=== PATIENT | male | born 1950 | race Caucasian/White ===

== ENCOUNTER 2016-04-10 08:38 | Emergency (ER) | payer MEDICARE, MEDICAID ==
[2015-07-19 12:46] VITALS: BMI 27.7
[~2016-04-10 08:38] MED LIST: ABILIFY10 MG PO; ACETAMINOPHEN500 M1 PO; ARTIFICIAL TEAR15 ML EACH EYE; ASPIRIN325 MG PO; ATARAX 25 MG TA25 MG PO; ATIVAN1 MG PO; ATROPINE SL; CARBIDOPA-LEVO1 EAC2 PO; CARBIDOPA-LEVO1 EAC4 PO; CATAPRES TTS-10.1 MG TD; CELEXA20 MG PO; CLARITIN 10 MG10 MG PO; CLEOCIN HCL300 MG PO; COLACE100 MG PO; COMTAN200 MG PO; CYMBALTA30 MG; DICLOFENAC SODI50 MG PO; FEXOFENADINE HC60 MG PO; FLOMAX0.4 MG; FLOMAX0.4 MG PO; FLUTICASONE PRO16 GM NASAL; GAS-X125 M1 PO; HYDROCODON-ACE1 EAC7 PO; LOPRESSOR25 MG PO; MELATONIN 3 MG1 TAB PO; MIRALAX17 GM PO; MYRBETRIQ50 MG PO; NEUPRO; NITROSTAT0.4 MG SL; NORCO 7.5/325 T1 TA1 PO; PREVACID30 MG PO; PROTONIX40 MG PO; REMERON15 MG PO; REQUIP XL2 MG; REQUIP XL2 MG PO; RESTORIL7.5 MG PO; SELEGILINE HCL5 M1; SELEGILINE HCL5 M1 PO; SINEMET 25-1001 EACH PO; TRANSDERM-SCOP1.5 MG TD; TUMS500 MG PO; VESICARE5 MG PO; VITAMIN B COMPL1 TAB PO; VITAMIN D250000 UNIT PO; VITAMIN D31000 UNIT PO; VITAMIN D5000 UNIT PO; WELLBUTRIN SR150 MG PO; XANAX0.5 MG PO
[2016-04-10 09:08] LABS: BASOPHILS 0.3 % (0.0-2.0); HEMATOCRIT 35.5 % (42.0-54.0); HEMOGLOBIN 11.5 g/dL (13.5-17.5); IMMATURE GRANULOCYTES 0.1 % (0-5); LYMPHOCYTES 16.2 % (15-50); MCH 32.1 pg (26.0-34.0); MCHC 32.4 g/dL (31.0-37.0); MCV 99.2 fL (80.0-100.0); MEAN PLATELET VOLUME 9.6 fL (7.4-10.4); MONOCYTES 4.9 % (2-11); NEUTROPHILS 76.5 % (40-80); RBC 3.58 10x6/uL (4.20-6.10); RDW 12.4 % (11.5-14.5); WBC 7.6 10x3/uL (4.8-10.8)
[2016-04-10 09:09] LABS: PLATELET COUNT 152 10x3/uL (130-400)
[2016-04-10 09:27] LABS: ALBUMIN 3.5 g/dL (3.4-5.0); ALKALINE PHOSPHATASE 49 U/L (46-116); ALT (SGPT) 8 U/L (10-68); BILIRUBIN - TOTAL 1.18 mg/dL (0.2-1.3); CALC OSMOLALITY 283 mosm/kg (275-300); CALCIUM 8.2 mg/dL (8.5-10.1); CARBON DIOXIDE 32.7 mmol/L (21.0-32.0); CHLORIDE - SERUM 104 mmol/L (98-107); CREATININE - SERUM 0.8 mg/dL (0.6-1.3); GLUCOSE 115 mg/dL (74-106); POTASSIUM - SERUM 3.7 mmol/L (3.5-5.1); PROTEIN - SERUM 6.6 g/dL (6.4-8.2); SODIUM 141 mmol/L (136-145); UREA NITROGEN 17 mg/dL (7-18); eGFR NON AFRICAN AMERICAN > 90 mL/min (90-120)
[2016-04-10 09:36] LABS: AMYLASE - SERUM 50 U/L (25-115); CREATINE KINASE 69 UL (21-232); LIPASE 158 U/L (73-393); PRO BNP 104 pg/mL (0-125)
[2016-04-10 09:37] LABS: TROPONIN-I < 0.017 ng/mL (0.000-0.060)
== END 2016-04-10 10:10 | disposition home or self-care (01) ==
LOC: D.ER 08:38
PROVIDERS: Family Medicine
DX: R55 Syncope and collapse (principal); F41.9 Anxiety disorder, unspecified; N41.1 Chronic prostatitis; I10 Essential (primary) hypertension; E78.00 Pure hypercholesterolemia, unspecified; G47.00 Insomnia, unspecified; G20 Parkinson's disease; R00.1 Bradycardia, unspecified; I44.0 Atrioventricular block, first degree

== ENCOUNTER 2017-08-03 04:31 | Inpatient (IN) | payer MEDICARE, MEDICAID ==
[~2017-08-03] VITALS: Ht 167.6 cm; Wt 49.8 kg
[2017-08-03] VITALS (12 sets, daily range): BP systolic 119–152; BP diastolic 75–89; Ht 167.6 cm; Wt 49.8 kg
--- NOTE | ~2017-08-03 | CN ---
PATIENT NAME:JAYDEN DIXON JR MEDICAL RECORD: [id number] : 48 LOCATION:[facility] [place] ADMIT DATE: 08/03/17 ACCOUNT: [id number] CONSULTING PHYSICIAN: JONO CHUN MD REFERRING PHYSICIAN: VANDANA JOSE MD DATE OF CONSULTATION: 08/08/2017 CONSULT REQUESTING PHYSICIAN: Seble Andrew MD REASON FOR CONSULTATION: Pneumonia, right lower lobe and leukocytosis. HISTORY OF PRESENT ILLNESS: Mr. Dixon is a 66-year-old gentleman who has advanced Parkinson disease. The patient was admitted with nausea, vomiting, and coffee-ground vomit. He is now feeling a lot better. He has significant leukocytosis on admission and that has been improving. REVIEW OF SYSTEMS: Mainly in the history of present illness. PAST MEDICAL HISTORY: 1. Advanced Parkinson disease. 2. Functional quadriplegia. 3. Hypertension. 4. Hyperlipidemia. 5. Allergies. 6. Anxiety, depression. 7. Gastroesophageal reflux disease. 8. Dysphagia. PAST SURGICAL HISTORY: 1. Tonsillectomy. 2. Status post TURP. 3. Status post PEG tube placement. ALLERGIES: ALLERGIC TO HYDROXYZINE, ABILIFY, AND KLONOPIN. PRESENT MEDICATIONS: [employer] is reviewed. PERSONAL AND SOCIAL HISTORY: The patient never smokes, he is nondrinker. FAMILY HISTORY: Significant neurovascular, cardiovascular disease. PHYSICAL EXAMINATION: GENERAL: Now, the patient is lying comfortably in bed. He is not in acute distress. VITAL SIGNS: The blood pressure 122/68, pulse is 70, respiration 15, temperature 98.8, and SpO2 is 97% on 1.5 liters nasal cannula. HEENT: Conjunctivae are pink. Sclerae are not icteric. NECK: Supple, no JVD. CHEST: Excursion is minimal on both sides. There are basal crackles. No wheezing. HEART: Rhythm regular, normal sound, no murmur. ABDOMEN: Soft, bowel sounds present. The PEG tube is in place. RECTAL: Deferred. EXTREMITIES: No cyanosis, no clubbing, no pedal edema. CENTRAL NERVOUS SYSTEM: The patient is awake and alert. There is increased CONSULT REPORT [id number] JAYDEN DIXON JR rigidity. LABORATORY DATA: CBC on admission: WBC 19.3, hemoglobin 12.3, hematocrit 36.9, and the platelet count 230. Chemistry: Sodium 139, potassium 4.4, BUN is 9, creatinine 0.9. ABG on admission, the pH was 7.34, pCO2 of 49.1, the pO2 was 43, the bicarbonate is 26.8. Acute chest radiograph showed a right basal infiltrate. IMPRESSION: 1. Acute hypoxic respiratory failure secondary to pneumonia. 2. Pneumonia, right lower lobe, most likely aspiration with associated nausea and vomiting. 3. Leukocytosis. This has been improved. 4. Nausea and vomiting, etiology not clear. 5. Advanced Parkinson disease. 6. Dysphagia, status post PEG tube placement. RECOMMENDATION: 1. We will continue the Zosyn IV. 2. Supplemental oxygen. 3. We will follow labs and chest radiograph. GI has been consulted. Dr. Andrew, thank you for involving me in the care of Mr. Dixon. TRANSINT:[id number] Voice Confirmation ID: [id number] DOCUMENT ID: [id number] JONO CHUN MD at 1806 CC: SEBLE ANDREW [id number] DICTATION DATE: 08/08/17 1436 TRUCK STRIKER: 08/08/17 1837 ADM IN [facility] [address] [place] [id number]
[~2017-08-03 04:31] MED LIST changes: +REMERON15 MG PEG; -REMERON15 MG PO
[2017-08-03 05:03] LABS: BASOPHILS 0.4 % (0-2); EOSINOPHILS 0.3 % (0-7); HEMATOCRIT 40.1 % (42.0-54.0); HEMOGLOBIN 13.5 g/dL (13.5-17.5); IMMATURE GRANULOCYTES 0.3 % (0-5); LYMPHOCYTES 8.7 % (15-50); MCH 34.2 pg (26.0-34.0); MCHC 33.7 g/dL (31.0-37.0); MCV 101.5 fL (80.0-100.0); MEAN PLATELET VOLUME 10.3 fL (7.4-10.4); MONOCYTES 3.8 % (2-11); NEUTROPHILS 86.5 % (40-80); RBC 3.95 10x6/uL (4.20-6.10); RDW 12.3 % (11.5-14.5); WBC 10.9 10x3/uL (4.8-10.8)
[2017-08-03 05:04] LABS: PLATELET COUNT 216 10x3/uL (130-400)
[2017-08-03 05:08] LABS: APTT 25.1 SECONDS (22.8-39.4); INR 0.94 (0.85-1.17); PROTIME 12.2 SECONDS (11.6-15.0)
[2017-08-03 05:13] LABS: ALBUMIN 4.1 g/dL (3.4-5.0); ALKALINE PHOSPHATASE 88 U/L (46-116); ALT (SGPT) 22 U/L (10-68); BILIRUBIN - TOTAL 0.64 mg/dL (0.2-1.3); CALC OSMOLALITY 295 mosm/kg (275-300); CALCIUM 9.1 mg/dL (8.5-10.1); CARBON DIOXIDE 38.6 mmol/L (21.0-32.0); CHLORIDE - SERUM 99 mmol/L (98-107); POTASSIUM - SERUM 3.5 mmol/L (3.5-5.1); PROTEIN - SERUM 8.3 g/dL (6.4-8.2); SODIUM 143 mmol/L (136-145); UREA NITROGEN 32 mg/dL (7-18); eGFR NON AFRICAN AMERICAN 79 mL/min (90-120)
[2017-08-03 05:17] LABS: GLUCOSE 168 mg/dL (74-106)
[2017-08-03 06:45] LABS: APPEARANCE CLOUDY (CLEAR); BILIRUBIN NEGATIVE (NEGATIVE); COLOR YELLOW (YELLOW); GLUCOSE NEGATIVE (NEGATIVE); KETONE NEGATIVE (NEGATIVE); NITRITE NEGATIVE (NEGATIVE); PROTEIN NEGATIVE (NEGATIVE); UROBILINOGEN NORMAL (NORMAL)
[2017-08-03 08:05] LABS: HEMATOCRIT 39.8 % (42.0-54.0); HEMOGLOBIN 13.3 g/dL (13.5-17.5)
[2017-08-03 14:29] LABS: % SATURATION 12 % (15-55); IRON 45 ug/dl (35-150); TOTAL IRON BIND CAPACITY 347 ug/dl (260-445); UNSAT IRON BIND CAPACITY 302 ug/dl (150-375)
[2017-08-03 14:55] LABS: HEMATOCRIT 40.6 % (42.0-54.0); HEMOGLOBIN 13.6 g/dL (13.5-17.5)
[2017-08-03 19:57] LABS: HEMATOCRIT 36.8 % (42.0-54.0); HEMOGLOBIN 12.1 g/dL (13.5-17.5)
[2017-08-03 23:15] LABS: APPEARANCE CLEAR (CLEAR); BILIRUBIN NEGATIVE (NEGATIVE); COLOR YELLOW (YELLOW); GLUCOSE NEGATIVE (NEGATIVE); KETONE NEGATIVE (NEGATIVE); NITRITE NEGATIVE (NEGATIVE); PROTEIN TRACE mg/dL (NEGATIVE); UROBILINOGEN NORMAL (NORMAL)
[2017-08-03 23:17] LABS: BACTERIA NONE SEEN /hpf (NONE SEEN); EPITHELIAL CELLS NSEEN /hpf (0-5); RED CELLS - URINE 0-5 /hpf (0-5); WHITE CELLS - URINE NSEEN /hpf (0-5)
[2017-08-04] VITALS (24 sets, daily range): BP systolic 104–162; BP diastolic 59–99
[2017-08-04 04:20] LABS: BASOPHILS 0.1 % (0-2); EOSINOPHILS 0 % (0-7); HEMATOCRIT 36.9 % (42.0-54.0); HEMOGLOBIN 12.3 g/dL (13.5-17.5); IMMATURE GRANULOCYTES 0.3 % (0-5); LYMPHOCYTES 5.4 % (15-50); MCH 34.2 pg (26.0-34.0); MCHC 33.3 g/dL (31.0-37.0); MCV 102.5 fL (80.0-100.0); MEAN PLATELET VOLUME 10.3 fL (7.4-10.4); MONOCYTES 4.3 % (2-11); NEUTROPHILS 89.9 % (40-80); PLATELET COUNT 230 10x3/uL (130-400); RDW 12.8 % (11.5-14.5)
[2017-08-04 04:21] LABS: WBC 19.3 10x3/uL (4.8-10.8)
[2017-08-04 04:41] LABS: ANION GAP 16.5 mmol/L (8-16); CALCIUM 7.8 mg/dL (8.5-10.1); CREATININE - SERUM 1.1 mg/dL (0.6-1.3); POTASSIUM - SERUM 3.7 mmol/L (3.5-5.1)
[2017-08-04 04:43] LABS: CARBON DIOXIDE 26.2 mmol/L (21.0-32.0)
[2017-08-04 10:21] LABS: FOLATE (FOLIC ACID) - SERUM >20.0 ng/mL (>3.0)
[2017-08-05] VITALS (24 sets, daily range): BP systolic 107–174; BP diastolic 68–91
[2017-08-05 04:06] LABS: BASOPHILS 0.1 % (0-2); EOSINOPHILS 0 % (0-7); HEMATOCRIT 32.4 % (42.0-54.0); HEMOGLOBIN 10.5 g/dL (13.5-17.5); IMMATURE GRANULOCYTES 0.1 % (0-5); LYMPHOCYTES 8.8 % (15-50); MCH 33.4 pg (26.0-34.0); MCHC 32.4 g/dL (31.0-37.0); MCV 103.2 fL (80.0-100.0); MEAN PLATELET VOLUME 10.1 fL (7.4-10.4); MONOCYTES 7.2 % (2-11); NEUTROPHILS 83.8 % (40-80); RBC 3.14 10x6/uL (4.20-6.10); RDW 12.9 % (11.5-14.5)
[2017-08-05 04:11] LABS: PLATELET COUNT 171 10x3/uL (130-400); WBC 10.7 10x3/uL (4.8-10.8)
[2017-08-05 04:22] LABS: ALKALINE PHOSPHATASE 55 U/L (46-116); ALT (SGPT) 20 U/L (10-68); BILIRUBIN - TOTAL 1.87 mg/dL (0.2-1.3); CALC OSMOLALITY 297 mosm/kg (275-300); CALCIUM 7.2 mg/dL (8.5-10.1); CARBON DIOXIDE 29.3 mmol/L (21.0-32.0); CHLORIDE - SERUM 108 mmol/L (98-107); CREATININE - SERUM 0.9 mg/dL (0.6-1.3); GLUCOSE 110 mg/dL (74-106); POTASSIUM - SERUM 3.4 mmol/L (3.5-5.1); PROTEIN - SERUM 6.7 g/dL (6.4-8.2); SODIUM 146 mmol/L (136-145); UREA NITROGEN 30 mg/dL (7-18); eGFR NON AFRICAN AMERICAN 89 mL/min (90-120)
[2017-08-06] VITALS (24 sets, daily range): BP systolic 122–151; BP diastolic 58–77
[2017-08-07] VITALS (23 sets, daily range): BP systolic 108–170; BP diastolic 54–90
[2017-08-07 04:07] LABS: BASOPHILS 0.3 % (0-2); EOSINOPHILS 1.2 % (0-7); HEMATOCRIT 29.8 % (42.0-54.0); HEMOGLOBIN 9.9 g/dL (13.5-17.5); MCH 33.6 pg (26.0-34.0); MCHC 33.2 g/dL (31.0-37.0); MEAN PLATELET VOLUME 10.4 fL (7.4-10.4); MONOCYTES 7.9 % (2-11); NEUTROPHILS 74.6 % (40-80); PLATELET COUNT 155 10x3/uL (130-400); RBC 2.95 10x6/uL (4.20-6.10); RDW 12.2 % (11.5-14.5)
[2017-08-07 04:08] LABS: WBC 6.7 10x3/uL (4.8-10.8)
[2017-08-07 04:27] LABS: ALBUMIN 2.4 g/dL (3.4-5.0); ALKALINE PHOSPHATASE 55 U/L (46-116); ALT (SGPT) 24 U/L (10-68); CALC OSMOLALITY 285 mosm/kg (275-300); CHLORIDE - SERUM 107 mmol/L (98-107); CREATININE - SERUM 0.7 mg/dL (0.6-1.3); GLUCOSE 98 mg/dL (74-106); PROTEIN - SERUM 5.4 g/dL (6.4-8.2); SODIUM 143 mmol/L (136-145); UREA NITROGEN 15 mg/dL (7-18); eGFR NON AFRICAN AMERICAN > 90 mL/min (90-120)
[2017-08-07 04:28] LABS: CALCIUM 5.9 mg/dL (8.5-10.1); POTASSIUM - SERUM 2.7 mmol/L (3.5-5.1)
[2017-08-08] VITALS (15 sets, daily range): BP systolic 104–162; BP diastolic 46–94
[2017-08-08 03:45] LABS: BASOPHILS 0.7 % (0-2); EOSINOPHILS 4.7 % (0-7); HEMATOCRIT 33.7 % (42.0-54.0); HEMOGLOBIN 11.2 g/dL (13.5-17.5); IMMATURE GRANULOCYTES 0.3 % (0-5); LYMPHOCYTES 21.8 % (15-50); MCH 33.1 pg (26.0-34.0); MCHC 33.2 g/dL (31.0-37.0); MCV 99.7 fL (80.0-100.0); MEAN PLATELET VOLUME 9.9 fL (7.4-10.4); NEUTROPHILS 63.5 % (40-80); PLATELET COUNT 166 10x3/uL (130-400); RBC 3.38 10x6/uL (4.20-6.10)
[2017-08-08 04:06] LABS: ALBUMIN 2.8 g/dL (3.4-5.0); ALKALINE PHOSPHATASE 65 U/L (46-116); BILIRUBIN - TOTAL 1.48 mg/dL (0.2-1.3); CARBON DIOXIDE 30.3 mmol/L (21.0-32.0); CHLORIDE - SERUM 101 mmol/L (98-107); GLUCOSE 103 mg/dL (74-106); PROTEIN - SERUM 6.7 g/dL (6.4-8.2); SODIUM 139 mmol/L (136-145)
[2017-08-08 04:18] LABS: ALT (SGPT) 37 U/L (10-68); CALC OSMOLALITY 276 mosm/kg (275-300); CALCIUM 6.4 mg/dL (8.5-10.1); CREATININE - SERUM 0.9 mg/dL (0.6-1.3); POTASSIUM - SERUM 4.4 mmol/L (3.5-5.1); UREA NITROGEN 9 mg/dL (7-18); eGFR NON AFRICAN AMERICAN 89 mL/min (90-120)
[2017-08-09 00:59] VITALS: BP 124/54
[2017-08-09 04:17] VITALS: BP 134/64
[2017-08-09 05:42] LABS: BASOPHILS 0.4 % (0-2); EOSINOPHILS 5.2 % (0-7); HEMATOCRIT 31.1 % (42.0-54.0); HEMOGLOBIN 10.2 g/dL (13.5-17.5); IMMATURE GRANULOCYTES 0.3 % (0-5); LYMPHOCYTES 15.6 % (15-50); MCH 32.7 pg (26.0-34.0); MCHC 32.8 g/dL (31.0-37.0); MCV 99.7 fL (80.0-100.0); MEAN PLATELET VOLUME 10.3 fL (7.4-10.4); MONOCYTES 8.7 % (2-11); NEUTROPHILS 69.8 % (40-80); PLATELET COUNT 182 10x3/uL (130-400); RBC 3.12 10x6/uL (4.20-6.10); RDW 12.3 % (11.5-14.5); WBC 6.7 10x3/uL (4.8-10.8)
[2017-08-09 06:02] LABS: ALBUMIN 2.5 g/dL (3.4-5.0); ALKALINE PHOSPHATASE 56 U/L (46-116); CALC OSMOLALITY 290 mosm/kg (275-300); CARBON DIOXIDE 28.5 mmol/L (21.0-32.0); CHLORIDE - SERUM 107 mmol/L (98-107); CREATININE - SERUM 0.8 mg/dL (0.6-1.3); GLUCOSE 93 mg/dL (74-106); PROTEIN - SERUM 5.8 g/dL (6.4-8.2); SODIUM 147 mmol/L (136-145); UREA NITROGEN 11 mg/dL (7-18); eGFR NON AFRICAN AMERICAN > 90 mL/min (90-120)
[2017-08-09 06:36] LABS: ALT (SGPT) 13 U/L (10-68); POTASSIUM - SERUM 3.3 mmol/L (3.5-5.1)
[2017-08-09 06:37] LABS: CALCIUM 6.3 mg/dL (8.5-10.1)
[2017-08-09 08:58] VITALS: BP 105/58
[2017-08-09 11:33] VITALS: BP 154/85
[2017-08-09 15:46] VITALS: BP 107/51
[2017-08-09 21:12] VITALS: BP 144/47
[2017-08-10 01:10] VITALS: BP 108/41
[2017-08-10 04:30] VITALS: BP 154/48
[2017-08-10 04:51] LABS: BASOPHILS 0.8 % (0-2); EOSINOPHILS 6.6 % (0-7); HEMATOCRIT 29.8 % (42.0-54.0); HEMOGLOBIN 9.9 g/dL (13.5-17.5); IMMATURE GRANULOCYTES 0.5 % (0-5); LYMPHOCYTES 19.9 % (15-50); MCH 33.1 pg (26.0-34.0); MCHC 33.2 g/dL (31.0-37.0); MCV 99.7 fL (80.0-100.0); MEAN PLATELET VOLUME 10.3 fL (7.4-10.4); MONOCYTES 7.4 % (2-11); NEUTROPHILS 64.8 % (40-80); PLATELET COUNT 191 10x3/uL (130-400); RBC 2.99 10x6/uL (4.20-6.10); RDW 12.2 % (11.5-14.5); WBC 6.1 10x3/uL (4.8-10.8)
[2017-08-10 05:18] LABS: ALBUMIN 2.4 g/dL (3.4-5.0); ALKALINE PHOSPHATASE 54 U/L (46-116); ALT (SGPT) 12 U/L (10-68); CALC OSMOLALITY 290 mosm/kg (275-300); CARBON DIOXIDE 29.3 mmol/L (21.0-32.0); CHLORIDE - SERUM 107 mmol/L (98-107); CREATININE - SERUM 0.8 mg/dL (0.6-1.3); GLUCOSE 114 mg/dL (74-106); POTASSIUM - SERUM 3.4 mmol/L (3.5-5.1); PROTEIN - SERUM 5.6 g/dL (6.4-8.2); SODIUM 146 mmol/L (136-145); UREA NITROGEN 10 mg/dL (7-18); eGFR NON AFRICAN AMERICAN > 90 mL/min (90-120)
[2017-08-10 05:26] LABS: CALCIUM 6.7 mg/dL (8.5-10.1)
[2017-08-10 07:52] VITALS: BP 133/50
[2017-08-10 12:17] VITALS: BP 112/56
[2017-08-10 15:38] VITALS: BP 107/51
[2017-08-10 21:02] VITALS: BP 149/92
[2017-08-11 04:52] LABS: BASOPHILS 0.6 % (0-2); EOSINOPHILS 3.3 % (0-7); HEMATOCRIT 29.4 % (42.0-54.0); HEMOGLOBIN 9.6 g/dL (13.5-17.5); IMMATURE GRANULOCYTES 0.1 % (0-5); LYMPHOCYTES 15.1 % (15-50); MCH 32.9 pg (26.0-34.0); MCHC 32.7 g/dL (31.0-37.0); MCV 100.7 fL (80.0-100.0); MEAN PLATELET VOLUME 10.2 fL (7.4-10.4); MONOCYTES 7.7 % (2-11); NEUTROPHILS 73.2 % (40-80); PLATELET COUNT 198 10x3/uL (130-400); RBC 2.92 10x6/uL (4.20-6.10); RDW 12.4 % (11.5-14.5)
[2017-08-11 04:55] VITALS: BP 103/74
[2017-08-11 05:20] LABS: ALBUMIN 2.4 g/dL (3.4-5.0); ALKALINE PHOSPHATASE 50 U/L (46-116); CARBON DIOXIDE 30.5 mmol/L (21.0-32.0); CHLORIDE - SERUM 110 mmol/L (98-107); CREATININE - SERUM 0.9 mg/dL (0.6-1.3); GLUCOSE 98 mg/dL (74-106); POTASSIUM - SERUM 3.6 mmol/L (3.5-5.1); PROTEIN - SERUM 5.6 g/dL (6.4-8.2); SODIUM 146 mmol/L (136-145); eGFR NON AFRICAN AMERICAN 89 mL/min (90-120)
[2017-08-11 05:28] LABS: ALT (SGPT) 7 U/L (10-68); CALC OSMOLALITY 290 mosm/kg (275-300); UREA NITROGEN 13 mg/dL (7-18)
[2017-08-11 05:29] LABS: CALCIUM 6.4 mg/dL (8.5-10.1)
[2017-08-11 07:58] VITALS: BP 112/57
[2017-08-11 12:21] VITALS: BP 131/54
[2017-08-11 15:55] VITALS: BP 120/51
[2017-08-11 20:00] VITALS: BP 105/56
[2017-08-12] VITALS (14 sets, daily range): BP systolic 97–162; BP diastolic 54–86
[2017-08-12 04:58] LABS: BASOPHILS 1.4 % (0-2); EOSINOPHILS 4.7 % (0-7); HEMATOCRIT 29.7 % (42.0-54.0); HEMOGLOBIN 9.9 g/dL (13.5-17.5); IMMATURE GRANULOCYTES 0.2 % (0-5); LYMPHOCYTES 21.7 % (15-50); MCH 33.4 pg (26.0-34.0); MCHC 33.3 g/dL (31.0-37.0); MCV 100.3 fL (80.0-100.0); MONOCYTES 10.2 % (2-11); NEUTROPHILS 61.8 % (40-80); PLATELET COUNT 211 10x3/uL (130-400); RBC 2.96 10x6/uL (4.20-6.10); RDW 12.5 % (11.5-14.5)
[2017-08-12 05:04] LABS: WBC 5.1 10x3/uL (4.8-10.8)
[2017-08-12 05:29] LABS: ALBUMIN 2.5 g/dL (3.4-5.0); ALKALINE PHOSPHATASE 51 U/L (46-116); CALC OSMOLALITY 289 mosm/kg (275-300); CARBON DIOXIDE 28.9 mmol/L (21.0-32.0); CHLORIDE - SERUM 109 mmol/L (98-107); CREATININE - SERUM 0.7 mg/dL (0.6-1.3); GLUCOSE 76 mg/dL (74-106); POTASSIUM - SERUM 3.3 mmol/L (3.5-5.1); PROTEIN - SERUM 5.8 g/dL (6.4-8.2); SODIUM 146 mmol/L (136-145); UREA NITROGEN 12 mg/dL (7-18); eGFR NON AFRICAN AMERICAN > 90 mL/min (90-120)
[2017-08-12 05:30] LABS: ALT (SGPT) 9 U/L (10-68)
[2017-08-13 04:07] VITALS: BP 134/70
[2017-08-13 05:17] LABS: BASOPHILS 0.8 % (0-2); HEMATOCRIT 30.9 % (42.0-54.0); HEMOGLOBIN 10.3 g/dL (13.5-17.5); IMMATURE GRANULOCYTES 0.2 % (0-5); MCH 33.3 pg (26.0-34.0); MCHC 33.3 g/dL (31.0-37.0); MEAN PLATELET VOLUME 9.9 fL (7.4-10.4); MONOCYTES 8.6 % (2-11); NEUTROPHILS 68.4 % (40-80); PLATELET COUNT 225 10x3/uL (130-400); RBC 3.09 10x6/uL (4.20-6.10); RDW 12.6 % (11.5-14.5); WBC 6.3 10x3/uL (4.8-10.8)
[2017-08-13 05:28] LABS: ALBUMIN 2.7 g/dL (3.4-5.0); ALKALINE PHOSPHATASE 53 U/L (46-116); BILIRUBIN - TOTAL 0.67 mg/dL (0.2-1.3); CALC OSMOLALITY 285 mosm/kg (275-300); CALCIUM 7.1 mg/dL (8.5-10.1); CARBON DIOXIDE 29.7 mmol/L (21.0-32.0); CHLORIDE - SERUM 107 mmol/L (98-107); CREATININE - SERUM 0.8 mg/dL (0.6-1.3); GLUCOSE 109 mg/dL (74-106); POTASSIUM - SERUM 3.6 mmol/L (3.5-5.1); PROTEIN - SERUM 6.3 g/dL (6.4-8.2); SODIUM 143 mmol/L (136-145); UREA NITROGEN 12 mg/dL (7-18); eGFR NON AFRICAN AMERICAN > 90 mL/min (90-120)
[2017-08-13 05:29] LABS: ALT (SGPT) 16 U/L (10-68)
[2017-08-13 08:07] VITALS: BP 123/67
[2017-08-13 18:29] VITALS: BP 139/70
[2017-08-13 21:08] VITALS: BP 120/61
[2017-08-14 01:08] VITALS: BP 90/57
[2017-08-14 04:45] VITALS: BP 120/961
[2017-08-14 05:35] LABS: BASOPHILS 0.5 % (0-2); HEMATOCRIT 31.4 % (42.0-54.0); HEMOGLOBIN 10.3 g/dL (13.5-17.5); IMMATURE GRANULOCYTES 0.2 % (0-5); LYMPHOCYTES 20.1 % (15-50); MCH 33.2 pg (26.0-34.0); MCHC 32.8 g/dL (31.0-37.0); MCV 101.3 fL (80.0-100.0); MEAN PLATELET VOLUME 9.7 fL (7.4-10.4); MONOCYTES 8.3 % (2-11); NEUTROPHILS 66.9 % (40-80); PLATELET COUNT 224 10x3/uL (130-400); RDW 12.8 % (11.5-14.5); WBC 5.5 10x3/uL (4.8-10.8)
[2017-08-14 06:02] LABS: ALBUMIN 2.4 g/dL (3.4-5.0); ALKALINE PHOSPHATASE 54 U/L (46-116); ALT (SGPT) 15 U/L (10-68); CALC OSMOLALITY 289 mosm/kg (275-300); CARBON DIOXIDE 30.1 mmol/L (21.0-32.0); CHLORIDE - SERUM 109 mmol/L (98-107); CREATININE - SERUM 0.7 mg/dL (0.6-1.3); GLUCOSE 100 mg/dL (74-106); POTASSIUM - SERUM 3.6 mmol/L (3.5-5.1); PROTEIN - SERUM 5.7 g/dL (6.4-8.2); SODIUM 146 mmol/L (136-145); UREA NITROGEN 9 mg/dL (7-18); eGFR NON AFRICAN AMERICAN > 90 mL/min (90-120)
[2017-08-14 06:09] LABS: CALCIUM 6.9 mg/dL (8.5-10.1)
[2017-08-14 08:00] VITALS: BP 104/56
[2017-08-14 12:15] VITALS: BP 110/59
[2017-08-14 16:00] VITALS: BP 105/54
[2017-08-14 20:46] VITALS: BP 109/53
[2017-08-15 04:20] LABS: BASOPHILS 0.5 % (0-2); EOSINOPHILS 3.4 % (0-7); HEMATOCRIT 31.1 % (42.0-54.0); HEMOGLOBIN 10.2 g/dL (13.5-17.5); IMMATURE GRANULOCYTES 0.2 % (0-5); LYMPHOCYTES 21.3 % (15-50); MCH 33.6 pg (26.0-34.0); MCHC 32.8 g/dL (31.0-37.0); MCV 102.3 fL (80.0-100.0); MEAN PLATELET VOLUME 9.4 fL (7.4-10.4); MONOCYTES 5.5 % (2-11); NEUTROPHILS 69.1 % (40-80); PLATELET COUNT 218 10x3/uL (130-400); RBC 3.04 10x6/uL (4.20-6.10); RDW 12.7 % (11.5-14.5); WBC 5.7 10x3/uL (4.8-10.8)
[2017-08-15 04:38] LABS: ALBUMIN 2.4 g/dL (3.4-5.0); ALKALINE PHOSPHATASE 54 U/L (46-116); ALT (SGPT) 12 U/L (10-68); BILIRUBIN - TOTAL 0.46 mg/dL (0.2-1.3); CALC OSMOLALITY 287 mosm/kg (275-300); CALCIUM 7.1 mg/dL (8.5-10.1); CARBON DIOXIDE 30.1 mmol/L (21.0-32.0); CHLORIDE - SERUM 106 mmol/L (98-107); CREATININE - SERUM 0.7 mg/dL (0.6-1.3); GLUCOSE 95 mg/dL (74-106); POTASSIUM - SERUM 3.6 mmol/L (3.5-5.1); PROTEIN - SERUM 5.9 g/dL (6.4-8.2); SODIUM 145 mmol/L (136-145); UREA NITROGEN 10 mg/dL (7-18); eGFR NON AFRICAN AMERICAN > 90 mL/min (90-120)
[2017-08-15 05:03] VITALS: BP 139/67
[2017-08-15 07:43] VITALS: BP 125/58
[2017-08-15 12:00] VITALS: BP 123/56
[2017-08-15 16:00] VITALS: BP 150/70
[2017-08-15 20:43] VITALS: BP 139/80
[2017-08-15 23:44] VITALS: BP 139/66
[2017-08-16 04:22] VITALS: BP 145/66
[2017-08-16 05:29] LABS: BASOPHILS 1.1 % (0-2); EOSINOPHILS 2.1 % (0-7); HEMATOCRIT 30.9 % (42.0-54.0); IMMATURE GRANULOCYTES 0.2 % (0-5); LYMPHOCYTES 19.3 % (15-50); MCH 32.9 pg (26.0-34.0); MCHC 32.4 g/dL (31.0-37.0); MCV 101.6 fL (80.0-100.0); MEAN PLATELET VOLUME 9.8 fL (7.4-10.4); MONOCYTES 5.4 % (2-11); NEUTROPHILS 71.9 % (40-80); PLATELET COUNT 253 10x3/uL (130-400); RBC 3.04 10x6/uL (4.20-6.10); RDW 12.8 % (11.5-14.5); WBC 5.6 10x3/uL (4.8-10.8)
[2017-08-16 05:30] LABS: ALBUMIN 2.4 g/dL (3.4-5.0); ALKALINE PHOSPHATASE 53 U/L (46-116); ALT (SGPT) 11 U/L (10-68); BILIRUBIN - TOTAL 0.53 mg/dL (0.2-1.3); CALC OSMOLALITY 286 mosm/kg (275-300); CALCIUM 7.3 mg/dL (8.5-10.1); CARBON DIOXIDE 30.5 mmol/L (21.0-32.0); CHLORIDE - SERUM 108 mmol/L (98-107); CREATININE - SERUM 0.7 mg/dL (0.6-1.3); GLUCOSE 98 mg/dL (74-106); PROTEIN - SERUM 5.8 g/dL (6.4-8.2); SODIUM 144 mmol/L (136-145); UREA NITROGEN 12 mg/dL (7-18); eGFR NON AFRICAN AMERICAN > 90 mL/min (90-120)
[2017-08-16 08:30] VITALS: BP 147/69
[2017-08-16] MEDS ORDERED: SINEMET 25-2501 EACH PEG (12:30)
[2017-08-16 12:44] VITALS: BP 149/76
[2017-08-16] MEDS ORDERED: ATIVAN2 MG PEG (12:47)
[2017-08-16 15:49] VITALS: BP 145/77
== END 2017-08-16 18:00 | DRG 919 ==
LOC: D.ER 04:31 → D.MS 06:31 → D.ICU 06:31 → D.EDHOLD 06:31 → D.MS 06:44 → D.ICU 18:17 → D.MS 08-08 17:58
PROVIDERS: Emergency Medicine; Family Medicine; Internal Medicine Gastroenterology; Internal Medicine Nephrology
PROC: 5A09357 Assistance with Respiratory Ventilation, Less than 24 Consecutive Hours, Continuous Positive Airway Pressure (ICD-10-PCS; principal; 2017-08-03)
DX: T85.898A Other specified complication of other internal prosthetic devices, implants and grafts, initial encounter (principal); R53.2 Functional quadriplegia; J96.01 Acute respiratory failure with hypoxia; J69.0 Pneumonitis due to inhalation of food and vomit; K92.2 Gastrointestinal hemorrhage, unspecified; D62 Acute posthemorrhagic anemia; K31.1 Adult hypertrophic pyloric stenosis; K59.00 Constipation, unspecified; G20 Parkinson's disease; N40.0 Benign prostatic hyperplasia without lower urinary tract symptoms; I10 Essential (primary) hypertension; E78.5 Hyperlipidemia, unspecified; K21.9 Gastro-esophageal reflux disease without esophagitis; D75.89 Other specified diseases of blood and blood-forming organs; M16.0 Bilateral primary osteoarthritis of hip; D72.829 Elevated white blood cell count, unspecified

== ENCOUNTER → 2017-08-30 12:55 | Outpatient (CLI) | payer MEDICARE, MEDICAID ==
[2017-08-03 19:30] VITALS: BMI 17.7
[~2017-08-30 12:55] MED LIST changes: +ATIVAN2 MG PEG; +CARAFATE1 G/10 ML; +COLACE50 MG/5 ML PO; +EXELON1 PATCH .1 TRANSDERM; +FLOMAX0.4 MG PEG; +LASIX40 MG PO; +OMNICEF250 MG/5 M PO; +PROTONIX FOR OR40 MG PT; +SINEMET 25-2501 EACH PEG; +ZOFRAN4 MG PEG
== END | disposition home or self-care (01) ==
LOC: D.RAD 12:55
DX: R13.10 Dysphagia, unspecified (principal)

== ENCOUNTER 2017-09-16 10:15 | Inpatient (IN) | payer MEDICARE, MEDICAID ==
[2017-09-16] VITALS (11 sets, daily range): BP systolic 101–148; BP diastolic 53–93
[~2017-09-16] VITALS: Ht 167.6 cm; Wt 51.7 kg
--- NOTE | ~2017-09-16 | MORECARE ---
CASE MANAGEMENT DISCHARGE SUMMARY PATIENT: JAYDEN SHARP JR UNIT: [id number] ADM DATE: 09/16/17 AGE: 66 : 49 SEX: M ROOM/BED: D.2233 AUTHOR: CASE, SECOND HELPER PHYSICIAN: REFERRING PHYSICIAN: VANDANA JOSE MD DATE OF SERVICE: 09/16/17 Discharge Plan Patient Name: JAYDEN SHARP Facility: [facility]:[place] : 1950 Planned Disposition: Nursing Facility [facility] Cert Anticipated Discharge Date: 09/21/17 Discharge Date: Expected LOS: 5 Initial Reviewer: [email or web address] Initial Review Date: 09/16/2017 Generated: 09/30/17 2:32 pm DCP- Discharge Planning Updated by [email or web address]: Lilly Mckeon on 09/16/17 3:[address] Patient Name: JAYDEN SHARP Admission Status: ER Accout number: [id number] Admission Date: 09-16-2017 : 1950 Admission Diagnosis: Attending: VANDANA JOSE Current LOS: 1 Anticipated DC Date: 09-21-2017 Planned Disposition: Nursing Facility [facility] Cert Primary Insurance: [facility] [employer] Discharge Planning Comments: CM met with patient to complete initial dc planning assessment. CM educated patient on the CM role and verbal consent given by patient to complete assessment. Patient is a resident at [facility]. At discharge patient will return to [facility]. Patient unable to answer questions and only looks at you when spoken to. CM spoke to [facility] and they stated [facility] a [facility]. CM will continue to follow and will assist as needed with dc plans/needs. See below for more assessment information. Is the patient Alert and Oriented? No * How many steps to enterexit or inside your home? None * PCP [facility] Phys[facility] * [facility]acy [facility] * Preadmission Environment Ems Coordinator [facility] * Facility Name [facility] * ADLs Total Dependent * Equipment Wheelchair * Other Equipment Patient is wheelchair bound. Unable to ambulate. * List name and contact numbers for known caregivers / representatives who currently or will assist patient after discharge: Melissa Corcoran [phone] Jayden "Hermilo" Zack [phone] [facility] [place]SE[place] plata [phone] * Verbal permission to speak to the caregivers and representatives has been obtained from the patient. Yes * Community resources currently utilized None * Additional services required to return to the preadmission environment? No * Can the patient safely return to the preadmission environment? Yes * Has this patient been hospitalized within the prior 30 days at any hospital? No Theater Technician: Lilly Mckeon DCPIA - Discharge Planning Initial Assessment Updated by [email or web address]: Lilly Mckeon on 09/16/17 4:32 pm * Is the patient Alert and Oriented? No * How many steps to enterexit or inside your home? None * PCP [facility] Phys[facility] * Pharmacy [facility] * Preadmission Environment [facility] * Facility Name [facility] * ADLs Total Dependent * Equipment Wheelchair * Other Equipment Patient is wheelchair bound. Unable to ambulate. * List name and contact numbers for known caregivers / representatives who currently or will assist patient after discharge: Melissa Corcoran [phone] Jayden "[facility]" Zack [phone] [facility] [place] plata [phone] * Verbal permission to speak to the caregivers and representatives has been obtained from the patient. Yes * Community resources currently utilized None * Additional services required to return to the preadmission environment? No * Can the patient safely return to the preadmission environment? Yes * Has this patient been hospitalized within the prior 30 days at any hospital? No External Providers External Provider: [facility] Next Contact Date: Service Request Date: Service Type: Resolution: Reviewer: Comments: Patient Name: JAYDEN SHARP Page [phone] All edits/amendments must be made on the electronic document DICTATION DATE: 09/30/17 1331 POULTRY AND FISH BUTCHER: 09/30/17 1331 RPT#: [id number] DC DATE: STATUS: ADM IN [facility] [address] [place] [address] END OF REPORT
--- NOTE | ~2017-09-16 | EC ---
PATIENT:JAYDEN SHARP JR DATE OF SERVICE: 09/16/17 SEX: M MEDICAL RECORD: [id number] DATE OF : [birth year] LOCATION:[facility] [place] AGE OF PATIENT: 66 ADMISSION DATE: 09/16/17 REFERRING PHYSICIAN: INTERPRETING PHYSICIAN: OTIS GREGG MD ECHOCARDIOGRAM REPORT ECHO CHARGES 4 ECHO COMPLETE Date: 09/28 CLINICAL DIAGNOSIS: SOB ECHOCARDIOGRAPHIC MEASUREMENTS (adult normal given) AC root (d.<3.7cm) 4.0 cm LV Septum d (<1.2 cm> 1.4 cm Valve Excursion 1.7 cm LV Septum (systole) 1.8 cm Left Atria (s.<4.0cm> 2.4 cm LVPW d(<1.2cm) 1.1 cm RV (d.<2.3cm) 1.9 cm LVPW (sytole) 1.9 cm LV diastole(<5.6CM) 3.2 cm MV E-F(>70mm/sec) cm LV systole 1.4 cm LVOT Diameter 2.1 cm MV exc.(>10mm) cm Est.ejection fraction (50-75%) % DOPPLER: LVIT cm/sec A 77.0 cm/sec E 65.0 cm/sec LA cm/sec RVSP 15.1 mmHg LVOT 94.0 cm/sec AOP1/2T m/s Asc. Ao 109 cm/sec RVOT 90.0 cm/sec RA cm/sec PA 84.0 cm/sec AV Gradient Peak 4.7 mmHg AV Mean 2.4 mmHg AV Area 2.8 cm MV Gradient Peak 3.3 mmHg MV Mean 1.6 mmHg MV Area cm COMMENTS: Premium Card Cancellation Clerk: Herminio ROSALESOE Fondant Machine Operator: 1 Dr. Gregg TAPE# PACS Pericardial Effusion N DATE OF SERVICE: 09/29/2017 PROCEDURE: Echocardiogram. FINDINGS: 1. Left ventricular chamber size is within normal limits. Left ventricular systolic function is mildly reduced, overall ejection fraction estimated at 40%. 2. Left atrium is within normal limits at 3.0 cm. Right atrium and right ventricle chamber sizes are mildly dilated. 3. Valvular structures have normal structure and motion. ECHOCARDIOGRAM REPORT [id number] JAYDEN SHARP JR 4. Doppler interrogation only reveals trace tricuspid regurgitation, no other valvular insufficiency or stenosis and pulmonary systolic pressure is normal estimated at 15 mmHg. 5. No evidence of pericardial effusion or left ventricular thrombus. TRANSINT:[id number] Voice Confirmation ID: [id number] DOCUMENT ID: [id number] OTIS GREGG MD at 1713 CC: [id number] DICTATION DATE: 09/29/17 1235 GAME AUTHOR: 09/29/17 1240 DIS IN 09/30/[address] [place] [id number] [place] [id number]
--- NOTE | ~2017-09-16 | CN ---
PATIENT NAME:JAYDEN DIXON JR MEDICAL RECORD: [id number] : 48 LOCATION:D[facility] [place] ADMIT DATE: 09/16/17 ACCOUNT: [id number] CONSULTING PHYSICIAN: JONO CHUN MD REFERRING PHYSICIAN: VANDANA JOSE MD DATE OF CONSULTATION: 09/19/2017 CONSULT REQUESTING PHYSICIAN: Dr. Praveen David REASON FOR CONSULTATION: Pneumonia, gswrz-ih-jxkwyan hypoxic respiratory failure. HISTORY OF PRESENT ILLNESS: Mr. Dixon is a 66-year-old gentleman, very well known to our service from previous hospitalization. The patient was admitted with hypoxemia and worsening shortness of breath. Chest radiograph showed bilateral pneumonia. He also has associated nausea, vomiting and fever and most likely he has aspirated. REVIEW OF SYSTEMS: The patient is not communicating much. PAST MEDICAL HISTORY: 1. Advanced Parkinson disease. 2. Functional quadriplegia. 3. Dysphagia, status post PEG tube placement. 4. Gastroesophageal reflux disease. 5. Anxiety and depression. 6. Hypertension. 7. Hyperlipidemia. 8. Functional quadriplegia. PAST SURGICAL HISTORY: 1. Tonsillectomy. 2. Status post TURP. 3. Status post PEG tube placement. ALLERGIES: HE IS ALLERGIC TO HYDROXYZINE, ABILIFY, AND KLONOPIN. MEDICATIONS: [employer] is reviewed. PERSONAL AND SOCIAL HISTORY: The patient has never smoked and nondrinker. FAMILY HISTORY: Noncontributory. PHYSICAL EXAMINATION: GENERAL: Now, the patient is lying comfortably in bed. He is not in acute distress. VITAL SIGNS: The blood pressure is 132/71, pulse is 114, respiration 21, temperature 99.1, SpO2 is 98% on BiPAP. HEENT: Conjunctivae are pink. Sclerae are not icteric. NECK: Supple, no JVD. CHEST: The chest excursion is minimal and bilateral crackles. No wheezing. HEART: Rhythm regular, normal sound, no murmur. ABDOMEN: Soft, bowel sounds present. No hepatosplenomegaly. RECTAL: Deferred. EXTREMITIES: No cyanosis, no clubbing, no pedal edema. CONSULT REPORT [id number] JAYDEN DIXON JR SKIN: Warm, normal turgor. CENTRAL NERVOUS SYSTEM: The patient is sleepy and lethargic. He has increased muscular tone. LABORATORY DATA: CBC: WBC is 8.5, hemoglobin 10.7, hematocrit 33.1, and platelet count 193. Chemistry: Sodium 144, potassium 3.4, BUN is 22, creatinine 0.9. ABG: The pH is 7.34, pCO2 is 48, pO2 is 102, bicarbonate is 25.9. IMPRESSION: 1. Olkld-ji-xsnixys hypoxic respiratory failure. 2. Pneumonia, bilateral lower lobe, most likely aspiration pneumonia, possible hospital-acquired pneumonia with associated nausea and vomiting. 3. Advanced Parkinson disease. 4. Dysphagia. RECOMMENDATIONS: 1. Continue Levaquin IV, vancomycin IV, and meropenem IV. 2. BiPAP as required. 3. Follow up labs and chest radiograph. 4. Swallowing precaution. Dr. David, thank you for involving me in the care of Mr. Dixon. TRANSINT:[id number] Voice Confirmation ID: [id number] DOCUMENT ID: [id number] JONO CHUN MD at 1110 CC: [id number] DICTATION DATE: 09/19/171916 ADDICTION MEDICINE PHYSICIAN: 09/19/17 2303 ADM IN [facility] [address] [place] [address]
[~2017-09-16 10:15] MED LIST changes: -CARAFATE1 G/10 ML; -COLACE50 MG/5 ML PO; -EXELON1 PATCH .1 TRANSDERM; -FLOMAX0.4 MG PEG; -LASIX40 MG PO; -OMNICEF250 MG/5 M PO; -PROTONIX FOR OR40 MG PT; -ZOFRAN4 MG PEG
[2017-09-16 11:04] LABS: BASOPHILS 0.5 % (0-2); EOSINOPHILS 0 % (0-7); HEMATOCRIT 33.3 % (42.0-54.0); HEMOGLOBIN 10.8 g/dL (13.5-17.5); IMMATURE GRANULOCYTES 0.3 % (0-5); LYMPHOCYTES 5.3 % (15-50); MCH 32.6 pg (26.0-34.0); MCHC 32.4 g/dL (31.0-37.0); MCV 100.6 fL (80.0-100.0); MEAN PLATELET VOLUME 10.7 fL (7.4-10.4); MONOCYTES 8.3 % (2-11); NEUTROPHILS 85.6 % (40-80); PLATELET COUNT 172 10x3/uL (130-400); RBC 3.31 10x6/uL (4.20-6.10); RDW 12.4 % (11.5-14.5); WBC 8.8 10x3/uL (4.8-10.8)
[2017-09-16 11:36] LABS: ALKALINE PHOSPHATASE 82 U/L (46-116); BILIRUBIN - TOTAL 1.26 mg/dL (0.2-1.3); CALC OSMOLALITY 283 mosm/kg (275-300); CALCIUM 8.3 mg/dL (8.5-10.1); CARBON DIOXIDE 28.2 mmol/L (21.0-32.0); CHLORIDE - SERUM 101 mmol/L (98-107); CREATININE - SERUM 0.9 mg/dL (0.6-1.3); GLUCOSE 125 mg/dL (74-106); MAGNESIUM - SERUM 2.3 mg/dL (1.8-2.4); POTASSIUM - SERUM 3.8 mmol/L (3.5-5.1); PROTEIN - SERUM 7.7 g/dL (6.4-8.2); SODIUM 138 mmol/L (136-145); UREA NITROGEN 31 mg/dL (7-18); eGFR NON AFRICAN AMERICAN 89 mL/min (90-120)
[2017-09-16 11:37] LABS: ALT (SGPT) 5 U/L (10-68)
[2017-09-16 12:24] LABS: APPEARANCE CLEAR (CLEAR); BACTERIA MODERATE /hpf (NONE SEEN); BILIRUBIN NEGATIVE (NEGATIVE); COLOR DK YELLOW (YELLOW); EPITHELIAL CELLS 0-5 /hpf (0-5); GLUCOSE NEGATIVE (NEGATIVE); KETONE MODERATE mg/dL (NEGATIVE); MUCUS >1+ /lpf (NONE SEEN); NITRITE NEGATIVE (NEGATIVE); PROTEIN 1+ mg/dL (NEGATIVE); UROBILINOGEN NORMAL (NORMAL); WHITE CELLS - URINE 0-5 /hpf (0-5)
[2017-09-17] MEDS ORDERED: ZOFRAN4 MG PEG (01:17)
[2017-09-17] MEDS ORDERED: PROTONIX FOR OR40 MG PT (01:19)
[2017-09-17] MEDS ORDERED: CARAFATE1 G/10 ML (01:19)
[2017-09-17] MEDS ORDERED: NORCO 7.5/325 T1 TA1 PO (01:20)
[2017-09-17] MEDS ORDERED: NITROSTAT0.4 MG SL (01:21)
[2017-09-17] MEDS ORDERED: COLACE50 MG/5 ML PO (01:22)
[2017-09-17] MEDS ORDERED: ARTIFICIAL TEAR15 ML EACH EYE (01:23)
[2017-09-17] MEDS ORDERED: MELATONIN 3 MG1 TAB PO (01:24)
[2017-09-17] MEDS ORDERED: EXELON1 PATCH .1 TRANSDERM (01:24)
[2017-09-17] MEDS ORDERED: FLOMAX0.4 MG PEG (01:24)
[2017-09-17 01:30] VITALS: BP 101/53; BMI 18.4
[2017-09-17 04:50] VITALS: BP 104/54
[2017-09-17 07:38] LABS: BASOPHILS 0.4 % (0-2); EOSINOPHILS 0 % (0-7); HEMATOCRIT 31.6 % (42.0-54.0); HEMOGLOBIN 10.3 g/dL (13.5-17.5); IMMATURE GRANULOCYTES 0.2 % (0-5); LYMPHOCYTES 10.9 % (15-50); MCH 32.8 pg (26.0-34.0); MCHC 32.6 g/dL (31.0-37.0); MCV 100.6 fL (80.0-100.0); MEAN PLATELET VOLUME 10.6 fL (7.4-10.4); NEUTROPHILS 78.5 % (40-80); PLATELET COUNT 173 10x3/uL (130-400); RBC 3.14 10x6/uL (4.20-6.10); RDW 12.6 % (11.5-14.5)
[2017-09-17 07:42] LABS: WBC 5.5 10x3/uL (4.8-10.8)
[2017-09-17 07:54] LABS: CALC OSMOLALITY 287 mosm/kg (275-300); CALCIUM 8.1 mg/dL (8.5-10.1); CARBON DIOXIDE 28.1 mmol/L (21.0-32.0); CHLORIDE - SERUM 105 mmol/L (98-107); CREATININE - SERUM 0.8 mg/dL (0.6-1.3); GLUCOSE 81 mg/dL (74-106); POTASSIUM - SERUM 3.5 mmol/L (3.5-5.1); SODIUM 142 mmol/L (136-145); UREA NITROGEN 28 mg/dL (7-18); eGFR NON AFRICAN AMERICAN > 90 mL/min (90-120)
[2017-09-17 09:06] VITALS: Ht 167.6 cm; Wt 51.7 kg
[2017-09-17 09:27] VITALS: BP 134/62
[2017-09-17 14:07] VITALS: BP 114/60
[2017-09-17 17:01] VITALS: BP 140/76
[2017-09-17 22:37] VITALS: BP 163/95
[2017-09-18 04:06] VITALS: BP 184/84
[2017-09-18 08:25] VITALS: BP 118/58
[2017-09-18 11:37] VITALS: BP 117/55
[2017-09-18 16:05] VITALS: BP 113/60
[2017-09-18 18:44] LABS: BASOPHILS 0.2 % (0-2); EOSINOPHILS 0.4 % (0-7); HEMOGLOBIN 10.6 g/dL (13.5-17.5); IMMATURE GRANULOCYTES 0.5 % (0-5); LYMPHOCYTES 17.1 % (15-50); MCH 32.8 pg (26.0-34.0); MCHC 32.1 g/dL (31.0-37.0); MCV 102.2 fL (80.0-100.0); MEAN PLATELET VOLUME 10.3 fL (7.4-10.4); MONOCYTES 8.2 % (2-11); NEUTROPHILS 73.6 % (40-80); PLATELET COUNT 186 10x3/uL (130-400); RBC 3.23 10x6/uL (4.20-6.10); RDW 12.7 % (11.5-14.5)
[2017-09-18 18:49] VITALS: BP 140/72
[2017-09-18 18:58] LABS: WBC 8.1 10x3/uL (4.8-10.8)
[2017-09-18 19:17] LABS: ALBUMIN 2.7 g/dL (3.4-5.0); ALKALINE PHOSPHATASE 69 U/L (46-116); ALT (SGPT) 8 U/L (10-68); CALC OSMOLALITY 285 mosm/kg (275-300); CALCIUM 7.7 mg/dL (8.5-10.1); CARBON DIOXIDE 28.7 mmol/L (21.0-32.0); CHLORIDE - SERUM 105 mmol/L (98-107); CREATININE - SERUM 0.7 mg/dL (0.6-1.3); POTASSIUM - SERUM 3.4 mmol/L (3.5-5.1); PROTEIN - SERUM 7.2 g/dL (6.4-8.2); SODIUM 143 mmol/L (136-145); UREA NITROGEN 22 mg/dL (7-18); eGFR NON AFRICAN AMERICAN > 90 mL/min (90-120)
[2017-09-18 19:24] LABS: PRO BNP 959 pg/mL (0-125)
[2017-09-18 19:26] LABS: GLUCOSE 61 mg/dL (74-106)
[2017-09-18 22:41] VITALS: BP 131/74
[2017-09-19 03:58] VITALS: BP 111/61
[2017-09-19 06:58] LABS: BASOPHILS 0.5 % (0-2); EOSINOPHILS 0.2 % (0-7); HEMATOCRIT 33.1 % (42.0-54.0); HEMOGLOBIN 10.7 g/dL (13.5-17.5); IMMATURE GRANULOCYTES 0.4 % (0-5); LYMPHOCYTES 14.7 % (15-50); MCH 32.9 pg (26.0-34.0); MCHC 32.3 g/dL (31.0-37.0); MCV 101.8 fL (80.0-100.0); MEAN PLATELET VOLUME 10.8 fL (7.4-10.4); MONOCYTES 10.1 % (2-11); NEUTROPHILS 74.1 % (40-80); PLATELET COUNT 193 10x3/uL (130-400); RBC 3.25 10x6/uL (4.20-6.10); RDW 13.1 % (11.5-14.5); WBC 8.5 10x3/uL (4.8-10.8)
[2017-09-19 07:12] LABS: ALBUMIN 2.8 g/dL (3.4-5.0); ALKALINE PHOSPHATASE 64 U/L (46-116); ALT (SGPT) 7 U/L (10-68); BILIRUBIN - TOTAL 0.74 mg/dL (0.2-1.3); CALC OSMOLALITY 287 mosm/kg (275-300); CALCIUM 7.8 mg/dL (8.5-10.1); CARBON DIOXIDE 24.1 mmol/L (21.0-32.0); CHLORIDE - SERUM 103 mmol/L (98-107); CREATININE - SERUM 0.9 mg/dL (0.6-1.3); GLUCOSE 64 mg/dL (74-106); POTASSIUM - SERUM 3.4 mmol/L (3.5-5.1); PROTEIN - SERUM 6.7 g/dL (6.4-8.2); SODIUM 144 mmol/L (136-145); UREA NITROGEN 22 mg/dL (7-18); eGFR NON AFRICAN AMERICAN 89 mL/min (90-120)
[2017-09-19 08:12] VITALS: BP 119/64
[2017-09-19 12:43] VITALS: BP 133/70
[2017-09-19 16:03] VITALS: BP 132/71
[2017-09-19 21:29] VITALS: BP 93/56
[2017-09-19 23:47] VITALS: BP 108/64
[2017-09-20 04:22] VITALS: BP 124/64
[2017-09-20 08:02] LABS: BASOPHILS 0.5 % (0-2); EOSINOPHILS 1.1 % (0-7); HEMATOCRIT 30.5 % (42.0-54.0); HEMOGLOBIN 9.8 g/dL (13.5-17.5); IMMATURE GRANULOCYTES 0.6 % (0-5); LYMPHOCYTES 15.9 % (15-50); MCH 32.2 pg (26.0-34.0); MCHC 32.1 g/dL (31.0-37.0); MCV 100.3 fL (80.0-100.0); MEAN PLATELET VOLUME 10.2 fL (7.4-10.4); MONOCYTES 9.2 % (2-11); NEUTROPHILS 72.7 % (40-80); PLATELET COUNT 186 10x3/uL (130-400); RBC 3.04 10x6/uL (4.20-6.10)
[2017-09-20 08:15] LABS: ALBUMIN 2.6 g/dL (3.4-5.0); ALKALINE PHOSPHATASE 69 U/L (46-116); BILIRUBIN - TOTAL 0.74 mg/dL (0.2-1.3); CALC OSMOLALITY 292 mosm/kg (275-300); CALCIUM 7.8 mg/dL (8.5-10.1); CHLORIDE - SERUM 106 mmol/L (98-107); GLUCOSE 74 mg/dL (74-106); PROTEIN - SERUM 6.5 g/dL (6.4-8.2); SODIUM 146 mmol/L (136-145); UREA NITROGEN 22 mg/dL (7-18); VANCOMYCIN - TROUGH 15.3 ug/mL (10.0-20.0)
[2017-09-20 08:16] LABS: ALT (SGPT) 12 U/L (10-68); CREATININE - SERUM 0.6 mg/dL (0.6-1.3); eGFR NON AFRICAN AMERICAN > 90 mL/min (90-120)
[2017-09-20 10:08] VITALS: BP 139/61
[2017-09-20 16:02] VITALS: BP 137/63
[2017-09-20 20:13] VITALS: BP 121/65
[2017-09-21 00:30] VITALS: BP 154/70
[2017-09-21 04:24] VITALS: BP 130/63
[2017-09-21 06:46] LABS: BASOPHILS 0.5 % (0-2); EOSINOPHILS 1.9 % (0-7); HEMATOCRIT 28.8 % (42.0-54.0); HEMOGLOBIN 9.2 g/dL (13.5-17.5); IMMATURE GRANULOCYTES 1.4 % (0-5); LYMPHOCYTES 14.6 % (15-50); MCH 32.3 pg (26.0-34.0); MCHC 31.9 g/dL (31.0-37.0); MCV 101.1 fL (80.0-100.0); MEAN PLATELET VOLUME 10.1 fL (7.4-10.4); MONOCYTES 7.8 % (2-11); NEUTROPHILS 73.8 % (40-80); PLATELET COUNT 207 10x3/uL (130-400); RBC 2.85 10x6/uL (4.20-6.10); RDW 13.1 % (11.5-14.5); WBC 8.4 10x3/uL (4.8-10.8)
[2017-09-21 07:27] LABS: ALBUMIN 2.4 g/dL (3.4-5.0); ALKALINE PHOSPHATASE 56 U/L (46-116); BILIRUBIN - TOTAL 0.59 mg/dL (0.2-1.3); CALCIUM 7.3 mg/dL (8.5-10.1); CARBON DIOXIDE 28.8 mmol/L (21.0-32.0); CHLORIDE - SERUM 106 mmol/L (98-107); CREATININE - SERUM 0.7 mg/dL (0.6-1.3); GLUCOSE 74 mg/dL (74-106); POTASSIUM - SERUM 3.4 mmol/L (3.5-5.1); PROTEIN - SERUM 5.6 g/dL (6.4-8.2); SODIUM 143 mmol/L (136-145); eGFR NON AFRICAN AMERICAN > 90 mL/min (90-120)
[2017-09-21 07:30] LABS: ALT (SGPT) 6 U/L (10-68); CALC OSMOLALITY 284 mosm/kg (275-300); UREA NITROGEN 16 mg/dL (7-18)
[2017-09-21 08:57] VITALS: BP 142/65
[2017-09-21 13:15] VITALS: BP 128/60
[2017-09-21 16:56] VITALS: BP 125/72
[2017-09-21 20:04] VITALS: BP 133/68
[2017-09-22 01:23] VITALS: BP 125/64
[2017-09-22 04:10] VITALS: BP 154/74
[2017-09-22 04:51] LABS: BASOPHILS 0.4 % (0-2); EOSINOPHILS 7.3 % (0-7); HEMOGLOBIN 9.8 g/dL (13.5-17.5); IMMATURE GRANULOCYTES 1.2 % (0-5); LYMPHOCYTES 20.4 % (15-50); MCH 31.7 pg (26.0-34.0); MCHC 31.6 g/dL (31.0-37.0); MCV 100.3 fL (80.0-100.0); MEAN PLATELET VOLUME 10.1 fL (7.4-10.4); NEUTROPHILS 63.7 % (40-80); PLATELET COUNT 225 10x3/uL (130-400); RBC 3.09 10x6/uL (4.20-6.10); RDW 13.1 % (11.5-14.5); WBC 6.7 10x3/uL (4.8-10.8)
[2017-09-22 05:08] LABS: ALBUMIN 2.2 g/dL (3.4-5.0); ALKALINE PHOSPHATASE 54 U/L (46-116); BILIRUBIN - TOTAL 0.39 mg/dL (0.2-1.3); CALCIUM 7.6 mg/dL (8.5-10.1); CARBON DIOXIDE 33.5 mmol/L (21.0-32.0); CHLORIDE - SERUM 106 mmol/L (98-107); CREATININE - SERUM 0.7 mg/dL (0.6-1.3); POTASSIUM - SERUM 3.1 mmol/L (3.5-5.1); PROTEIN - SERUM 5.9 g/dL (6.4-8.2); SODIUM 144 mmol/L (136-145); UREA NITROGEN 14 mg/dL (7-18); eGFR NON AFRICAN AMERICAN > 90 mL/min (90-120)
[2017-09-22 05:13] LABS: ALT (SGPT) 9 U/L (10-68); CALC OSMOLALITY 289 mosm/kg (275-300); GLUCOSE 143 mg/dL (74-106)
[2017-09-22 09:31] VITALS: BP 134/72
[2017-09-22 16:44] VITALS: BP 108/58
[2017-09-22 20:24] VITALS: BP 76/46
[2017-09-22 23:41] VITALS: BP 116/68
[2017-09-23 04:04] VITALS: BP 96/58
[2017-09-23 07:36] LABS: BASOPHILS 0.5 % (0-2); EOSINOPHILS 8.5 % (0-7); HEMATOCRIT 32.2 % (42.0-54.0); HEMOGLOBIN 10.2 g/dL (13.5-17.5); IMMATURE GRANULOCYTES 1.1 % (0-5); LYMPHOCYTES 17.4 % (15-50); MCH 32.1 pg (26.0-34.0); MCHC 31.7 g/dL (31.0-37.0); MCV 101.3 fL (80.0-100.0); MEAN PLATELET VOLUME 10.3 fL (7.4-10.4); MONOCYTES 6.4 % (2-11); NEUTROPHILS 66.1 % (40-80); PLATELET COUNT 247 10x3/uL (130-400); RBC 3.18 10x6/uL (4.20-6.10); RDW 13.4 % (11.5-14.5)
[2017-09-23 07:58] LABS: ALBUMIN 2.1 g/dL (3.4-5.0); ALKALINE PHOSPHATASE 59 U/L (46-116); ALT (SGPT) 10 U/L (10-68); CALC OSMOLALITY 291 mosm/kg (275-300); CALCIUM 7.2 mg/dL (8.5-10.1); CARBON DIOXIDE 32.9 mmol/L (21.0-32.0); CHLORIDE - SERUM 109 mmol/L (98-107); CREATININE - SERUM 0.7 mg/dL (0.6-1.3); POTASSIUM - SERUM 3.5 mmol/L (3.5-5.1); PROTEIN - SERUM 5.3 g/dL (6.4-8.2); SODIUM 146 mmol/L (136-145); UREA NITROGEN 14 mg/dL (7-18); VANCOMYCIN - TROUGH 35.3 ug/mL (10.0-20.0); eGFR NON AFRICAN AMERICAN > 90 mL/min (90-120)
[2017-09-23 08:01] LABS: GLUCOSE 93 mg/dL (74-106)
[2017-09-23 09:01] VITALS: BP 110/58
[2017-09-23 13:45] VITALS: BP 99/57
[2017-09-23 16:09] VITALS: BP 103/62
[2017-09-23 19:48] VITALS: BP 119/64
[2017-09-24] VITALS (7 sets, daily range): BP systolic 87–155; BP diastolic 46–69
[2017-09-24 06:29] LABS: BASOPHILS 0.4 % (0-2); EOSINOPHILS 7.2 % (0-7); HEMATOCRIT 28.8 % (42.0-54.0); HEMOGLOBIN 9.2 g/dL (13.5-17.5); IMMATURE GRANULOCYTES 0.7 % (0-5); LYMPHOCYTES 15.8 % (15-50); MCH 32.1 pg (26.0-34.0); MCHC 31.9 g/dL (31.0-37.0); MCV 100.3 fL (80.0-100.0); MEAN PLATELET VOLUME 10.2 fL (7.4-10.4); MONOCYTES 7.4 % (2-11); NEUTROPHILS 68.5 % (40-80); PLATELET COUNT 231 10x3/uL (130-400); RBC 2.87 10x6/uL (4.20-6.10); RDW 13.5 % (11.5-14.5); WBC 7.3 10x3/uL (4.8-10.8)
[2017-09-24 06:58] LABS: ALBUMIN 1.9 g/dL (3.4-5.0); ALKALINE PHOSPHATASE 59 U/L (46-116); ALT (SGPT) 12 U/L (10-68); BILIRUBIN - TOTAL 0.34 mg/dL (0.2-1.3); CALC OSMOLALITY 281 mosm/kg (275-300); CALCIUM 7.1 mg/dL (8.5-10.1); CARBON DIOXIDE 32.8 mmol/L (21.0-32.0); CHLORIDE - SERUM 107 mmol/L (98-107); CREATININE - SERUM 0.6 mg/dL (0.6-1.3); GLUCOSE 103 mg/dL (74-106); POTASSIUM - SERUM 3.3 mmol/L (3.5-5.1); PROTEIN - SERUM 5.1 g/dL (6.4-8.2); SODIUM 141 mmol/L (136-145); UREA NITROGEN 14 mg/dL (7-18); eGFR NON AFRICAN AMERICAN > 90 mL/min (90-120)
[2017-09-25 04:38] VITALS: BP 98/54
[2017-09-25 06:38] LABS: BASOPHILS 0.3 % (0-2); EOSINOPHILS 6.5 % (0-7); HEMATOCRIT 27.4 % (42.0-54.0); HEMOGLOBIN 8.7 g/dL (13.5-17.5); IMMATURE GRANULOCYTES 0.7 % (0-5); LYMPHOCYTES 14.3 % (15-50); MCHC 31.8 g/dL (31.0-37.0); MCV 100.7 fL (80.0-100.0); MEAN PLATELET VOLUME 10.3 fL (7.4-10.4); MONOCYTES 5.6 % (2-11); NEUTROPHILS 72.6 % (40-80); PLATELET COUNT 220 10x3/uL (130-400); RBC 2.72 10x6/uL (4.20-6.10); RDW 13.4 % (11.5-14.5); WBC 8.9 10x3/uL (4.8-10.8)
[2017-09-25 07:03] LABS: ALBUMIN 1.9 g/dL (3.4-5.0); ALKALINE PHOSPHATASE 70 U/L (46-116); BILIRUBIN - TOTAL 0.33 mg/dL (0.2-1.3); CALC OSMOLALITY 279 mosm/kg (275-300); CALCIUM 7.2 mg/dL (8.5-10.1); CARBON DIOXIDE 31.2 mmol/L (21.0-32.0); CHLORIDE - SERUM 105 mmol/L (98-107); CREATININE - SERUM 0.6 mg/dL (0.6-1.3); GLUCOSE 105 mg/dL (74-106); PROTEIN - SERUM 4.9 g/dL (6.4-8.2); SODIUM 140 mmol/L (136-145); UREA NITROGEN 15 mg/dL (7-18); eGFR NON AFRICAN AMERICAN > 90 mL/min (90-120)
[2017-09-25 07:09] LABS: ALT (SGPT) 19 U/L (10-68); POTASSIUM - SERUM 3.9 mmol/L (3.5-5.1)
[2017-09-25 09:37] VITALS: BP 98/47
[2017-09-25 13:24] VITALS: BP 112/56
[2017-09-25 17:37] VITALS: BP 108/65
[2017-09-25 19:33] VITALS: BP 110/58
[2017-09-25 23:43] VITALS: BP 102/56
[2017-09-26 04:08] VITALS: BP 130/70
[2017-09-26 06:35] LABS: BASOPHILS 0.5 % (0-2); EOSINOPHILS 7.9 % (0-7); HEMATOCRIT 26.8 % (42.0-54.0); HEMOGLOBIN 8.5 g/dL (13.5-17.5); IMMATURE GRANULOCYTES 0.8 % (0-5); LYMPHOCYTES 16.4 % (15-50); MCH 31.7 pg (26.0-34.0); MCHC 31.7 g/dL (31.0-37.0); MONOCYTES 7.9 % (2-11); NEUTROPHILS 66.5 % (40-80); PLATELET COUNT 237 10x3/uL (130-400); RBC 2.68 10x6/uL (4.20-6.10); RDW 13.5 % (11.5-14.5)
[2017-09-26 07:02] LABS: ALBUMIN 1.9 g/dL (3.4-5.0); ALKALINE PHOSPHATASE 76 U/L (46-116); ALT (SGPT) 18 U/L (10-68); BILIRUBIN - TOTAL 0.24 mg/dL (0.2-1.3); CALC OSMOLALITY 282 mosm/kg (275-300); CALCIUM 7.3 mg/dL (8.5-10.1); CARBON DIOXIDE 35.1 mmol/L (21.0-32.0); CHLORIDE - SERUM 105 mmol/L (98-107); CREATININE - SERUM 0.7 mg/dL (0.6-1.3); GLUCOSE 90 mg/dL (74-106); POTASSIUM - SERUM 3.9 mmol/L (3.5-5.1); PROTEIN - SERUM 4.7 g/dL (6.4-8.2); SODIUM 142 mmol/L (136-145); UREA NITROGEN 12 mg/dL (7-18); eGFR NON AFRICAN AMERICAN > 90 mL/min (90-120)
[2017-09-26 08:48] VITALS: BP 121/65
[2017-09-26 12:58] VITALS: BP 107/54
[2017-09-26 16:27] VITALS: BP 136/62
[2017-09-26 21:32] VITALS: BP 126/77
[2017-09-27 04:13] VITALS: BP 110/64
[2017-09-27 06:20] LABS: BASOPHILS 0.8 % (0-2); EOSINOPHILS 7.4 % (0-7); HEMATOCRIT 28.7 % (42.0-54.0); HEMOGLOBIN 9.2 g/dL (13.5-17.5); IMMATURE GRANULOCYTES 0.5 % (0-5); LYMPHOCYTES 17.7 % (15-50); MCH 31.5 pg (26.0-34.0); MCHC 32.1 g/dL (31.0-37.0); MCV 98.3 fL (80.0-100.0); MONOCYTES 7.2 % (2-11); NEUTROPHILS 66.4 % (40-80); PLATELET COUNT 280 10x3/uL (130-400); RBC 2.92 10x6/uL (4.20-6.10); RDW 13.4 % (11.5-14.5); WBC 6.7 10x3/uL (4.8-10.8)
[2017-09-27 06:34] LABS: ALBUMIN 2.1 g/dL (3.4-5.0); ALKALINE PHOSPHATASE 80 U/L (46-116); ALT (SGPT) 22 U/L (10-68); BILIRUBIN - TOTAL 0.24 mg/dL (0.2-1.3); CALC OSMOLALITY 284 mosm/kg (275-300); CALCIUM 7.5 mg/dL (8.5-10.1); CARBON DIOXIDE 35.4 mmol/L (21.0-32.0); CHLORIDE - SERUM 105 mmol/L (98-107); CREATININE - SERUM 0.6 mg/dL (0.6-1.3); GLUCOSE 83 mg/dL (74-106); MAGNESIUM - SERUM 1.9 mg/dL (1.8-2.4); PHOSPHOROUS 3.9 mg/dL (2.5-4.9); POTASSIUM - SERUM 4.1 mmol/L (3.5-5.1); PROTEIN - SERUM 5.1 g/dL (6.4-8.2); SODIUM 144 mmol/L (136-145); UREA NITROGEN 11 mg/dL (7-18); eGFR NON AFRICAN AMERICAN > 90 mL/min (90-120)
[2017-09-27 09:28] VITALS: BP 153/68
[2017-09-27 12:13] VITALS: BP 122/51
[2017-09-27 16:50] VITALS: BP 112/57
[2017-09-27 21:19] VITALS: BP 103/57
[2017-09-28] VITALS (7 sets, daily range): BP systolic 106–139; BP diastolic 55–68
[2017-09-28 07:04] LABS: BASOPHILS 0.8 % (0-2); EOSINOPHILS 5.7 % (0-7); HEMATOCRIT 30.2 % (42.0-54.0); HEMOGLOBIN 9.6 g/dL (13.5-17.5); IMMATURE GRANULOCYTES 0.4 % (0-5); MCH 31.4 pg (26.0-34.0); MCHC 31.8 g/dL (31.0-37.0); MCV 98.7 fL (80.0-100.0); MEAN PLATELET VOLUME 9.8 fL (7.4-10.4); MONOCYTES 6.2 % (2-11); NEUTROPHILS 71.9 % (40-80); PLATELET COUNT 330 10x3/uL (130-400); RBC 3.06 10x6/uL (4.20-6.10); RDW 13.6 % (11.5-14.5)
[2017-09-28 07:07] LABS: WBC 8.9 10x3/uL (4.8-10.8)
[2017-09-28 07:25] LABS: ALBUMIN 2.4 g/dL (3.4-5.0); ALKALINE PHOSPHATASE 88 U/L (46-116); ALT (SGPT) 29 U/L (10-68); BILIRUBIN - TOTAL 0.27 mg/dL (0.2-1.3); CALC OSMOLALITY 280 mosm/kg (275-300); CALCIUM 8.2 mg/dL (8.5-10.1); CARBON DIOXIDE 38.1 mmol/L (21.0-32.0); CHLORIDE - SERUM 102 mmol/L (98-107); CREATININE - SERUM 0.7 mg/dL (0.6-1.3); GLUCOSE 107 mg/dL (74-106); POTASSIUM - SERUM 4.5 mmol/L (3.5-5.1); PROTEIN - SERUM 5.7 g/dL (6.4-8.2); SODIUM 141 mmol/L (136-145); UREA NITROGEN 12 mg/dL (7-18); eGFR NON AFRICAN AMERICAN > 90 mL/min (90-120)
[2017-09-29 04:00] VITALS: BP 191/71
[2017-09-29 06:57] LABS: CALC OSMOLALITY 280 mosm/kg (275-300); CALCIUM 8.2 mg/dL (8.5-10.1); CARBON DIOXIDE 37.2 mmol/L (21.0-32.0); CHLORIDE - SERUM 103 mmol/L (98-107); CREATININE - SERUM 0.6 mg/dL (0.6-1.3); GLUCOSE 99 mg/dL (74-106); POTASSIUM - SERUM 4.4 mmol/L (3.5-5.1); SODIUM 141 mmol/L (136-145); UREA NITROGEN 12 mg/dL (7-18); eGFR NON AFRICAN AMERICAN > 90 mL/min (90-120)
[2017-09-29 09:00] VITALS: BP 127/66
[2017-09-29 12:17] VITALS: BP 112/66
[2017-09-29 16:26] VITALS: BP 95/57
[2017-09-29 19:34] VITALS: BP 90/47
[2017-09-29 23:25] VITALS: BP 94/57
[2017-09-30 04:31] VITALS: BP 106/64
[2017-09-30 06:23] LABS: BASOPHILS 2.5 % (0-2); EOSINOPHILS 5.3 % (0-7); HEMATOCRIT 30.4 % (42.0-54.0); HEMOGLOBIN 9.7 g/dL (13.5-17.5); IMMATURE GRANULOCYTES 0.3 % (0-5); LYMPHOCYTES 21.5 % (15-50); MCH 31.7 pg (26.0-34.0); MCHC 31.9 g/dL (31.0-37.0); MCV 99.3 fL (80.0-100.0); MEAN PLATELET VOLUME 9.8 fL (7.4-10.4); MONOCYTES 8.5 % (2-11); NEUTROPHILS 61.9 % (40-80); PLATELET COUNT 354 10x3/uL (130-400); RBC 3.06 10x6/uL (4.20-6.10); RDW 13.7 % (11.5-14.5)
[2017-09-30 06:30] LABS: WBC 6.5 10x3/uL (4.8-10.8)
[2017-09-30 07:03] LABS: CALC OSMOLALITY 283 mosm/kg (275-300); CALCIUM 8.1 mg/dL (8.5-10.1); CARBON DIOXIDE 37.4 mmol/L (21.0-32.0); CHLORIDE - SERUM 100 mmol/L (98-107); CREATININE - SERUM 0.7 mg/dL (0.6-1.3); GLUCOSE 95 mg/dL (74-106); SODIUM 142 mmol/L (136-145); eGFR NON AFRICAN AMERICAN > 90 mL/min (90-120)
[2017-09-30 07:04] LABS: UREA NITROGEN 16 mg/dL (7-18)
[2017-09-30 08:03] VITALS: BP 112/58
[2017-09-30 12:24] VITALS: BP 98/56
[2017-09-30] MEDS ORDERED: LASIX40 MG PO (12:29)
== END 2017-09-30 18:45 | DRG 177 ==
LOC: D.ER 10:15 → D.EDHOLD 13:15 → D.MS 13:15
PROVIDERS: Emergency Medicine; Family Medicine; Internal Medicine Nephrology; Internal Medicine Pulmonary Disease
DX: J69.0 Pneumonitis due to inhalation of food and vomit (principal); E43 Unspecified severe protein-calorie malnutrition; R53.2 Functional quadriplegia; J96.21 Acute and chronic respiratory failure with hypoxia; Z68.1 Body mass index [BMI] 19.9 or less, adult; E87.0 Hyperosmolality and hypernatremia; N17.9 Acute kidney failure, unspecified; N39.0 Urinary tract infection, site not specified; J90 Pleural effusion, not elsewhere classified; K31.1 Adult hypertrophic pyloric stenosis; Z66 Do not resuscitate; R53.1 Weakness; D75.89 Other specified diseases of blood and blood-forming organs; I10 Essential (primary) hypertension; E78.5 Hyperlipidemia, unspecified; R13.10 Dysphagia, unspecified; M06.9 Rheumatoid arthritis, unspecified; K21.9 Gastro-esophageal reflux disease without esophagitis; G20 Parkinson's disease; N40.0 Benign prostatic hyperplasia without lower urinary tract symptoms; Y95 Nosocomial condition

== ENCOUNTER 2017-10-09 14:03 | Emergency (ER) | payer MEDICARE, MEDICAID ==
[~2017-10-09] VITALS: Ht 167.6 cm; Wt 68.2 kg
[~2017-10-09 14:03] MED LIST changes: +CARAFATE1 G/10 ML; +COLACE50 MG/5 ML PO; +EXELON1 PATCH .1 TRANSDERM; +FLOMAX0.4 MG PEG; +LASIX40 MG PO; +PROTONIX FOR OR40 MG PT; +ZOFRAN4 MG PEG
[2017-10-09 14:10] VITALS: Ht 167.6 cm; Wt 68.2 kg
[2017-10-09 14:51] LABS: HEMATOCRIT 24.8 % (42.0-54.0); HEMOGLOBIN 8.4 g/dL (13.5-17.5); LYMPHOCYTES 13.1 % (15-50); MCH 32.7 pg (26.0-34.0); MCHC 33.9 g/dL (31.0-37.0); MCV 96.5 fL (80.0-100.0); MEAN PLATELET VOLUME 9.7 fL (7.4-10.4); NEUTROPHILS 79.1 % (40-80); PLATELET COUNT 172 10x3/uL (130-400); RBC 2.57 10x6/uL (4.20-6.10); RDW 12.4 % (11.5-14.5); WBC 9.4 10x3/uL (4.8-10.8)
[2017-10-09 15:06] LABS: ALBUMIN 2.4 g/dL (3.4-5.0); ALKALINE PHOSPHATASE 108 U/L (46-116); ALT (SGPT) 20 U/L (10-68); BILIRUBIN - TOTAL 0.54 mg/dL (0.2-1.3); CALC OSMOLALITY 287 mosm/kg (275-300); CALCIUM 7.6 mg/dL (8.5-10.1); CARBON DIOXIDE 35.2 mmol/L (21.0-32.0); CHLORIDE - SERUM 101 mmol/L (98-107); CREATININE - SERUM 0.7 mg/dL (0.6-1.3); GLUCOSE 85 mg/dL (74-106); POTASSIUM - SERUM 4.5 mmol/L (3.5-5.1); PROTEIN - SERUM 6.6 g/dL (6.4-8.2); SODIUM 138 mmol/L (136-145); UREA NITROGEN 50 mg/dL (7-18); eGFR NON AFRICAN AMERICAN > 90 mL/min (90-120)
[2017-10-09 16:48] LABS: APPEARANCE HAZY (CLEAR); BILIRUBIN NEGATIVE (NEGATIVE); COLOR YELLOW (YELLOW); GLUCOSE NEGATIVE (NEGATIVE); KETONE NEGATIVE (NEGATIVE); NITRITE POSITIVE (NEGATIVE); PH 8.5 (5.0-6.0); PROTEIN TRACE mg/dL (NEGATIVE); SPECIFIC GRAVITY 1.005 (1.005-1.020); UROBILINOGEN NORMAL (NORMAL)
[2017-10-09 16:51] LABS: BACTERIA MANY /hpf (NONE SEEN); CALCIUM OXALATE CRYSTALS 0-5 /hpf (NONE SEEN); EPITHELIAL CELLS OCC /hpf (0-5); HYALINE CAST RARE /lpf (NONE SEEN); RED CELLS - URINE OCC /hpf (0-5)
[2017-10-09] MEDS ORDERED: OMNICEF250 MG/5 M PO (18:33)
[2017-10-09 20:57] VITALS: BP 90/54
== END 2017-10-09 21:00 ==
LOC: D.ER 14:03
PROVIDERS: Family Medicine
DX: N39.0 Urinary tract infection, site not specified (principal); E86.9 Volume depletion, unspecified; G20 Parkinson's disease; I10 Essential (primary) hypertension